=== PATIENT | female | born 1945 | race Caucasian/White ===

== ENCOUNTER → 2023-07-28 13:48 | Outpatient (CLI) | payer MEDICARE, MEDICAID, SELFPAY ==
--- NOTE | ~2023-07-28 | MM_ITS ---
EXAMINATION: MM screening génesis BI w son HISTORY: Screening mammogram TECHNIQUE: Craniocaudal and mediolateral oblique 3-D tomosynthesis images were obtained and synthetic 2-D images were generated. CAD analysis was submitted and interpreted. COMPARISON: No prior mammogram is available for comparison at this institution. BREAST PARENCHYMAL COMPOSITION: The breasts are almost entirely fatty. FINDINGS: No suspicious mass, calcification, or architectural distortion are identified in either saul ast to suggest malignancy. IMPRESSION: 1. No mammographic evidence of malignancy. 2. Recommend routine screening mammography in one year. BI-RADS Category 1: Negative Reviewed, dictated and finalized at location A. SH MIXER
== END ==
PROVIDERS: PCP Emergency Medicine; Visit Provider Emergency Medicine
DX: Z12.31 Encounter for screening mammogram for malignant neoplasm of breast (principal); Z78.0 Asymptomatic menopausal state
CPT/HCPCS: 77063; 77067

== ENCOUNTER 2023-10-24 11:24 | Outpatient (CLI) | payer MEDICARE, MEDICAID, SELFPAY ==
--- NOTE | ~2023-10-24 | XR_ITS ---
EXAMINATION: XR chest 2V DATE: 10/24/2023 11:49 INDICATION: Centrilobular emphysema. TECHNIQUE: Frontal and lateral views of the chest were obtained. COMPARISON: None. FINDINGS: There is mild atelectasis in the lower lung zones and left upper lobe. No pleural effusion or pneumothorax. The heart size is normal. IMPRESSION: 1. Mild atelectasis in the lungs. Reviewed, dictated and finalized at location E. OMER CONTACT REPRESENTATIVE
== END 2023-10-24 11:25 | disposition home or self-care (01) ==
PROVIDERS: PCP Emergency Medicine; Visit Provider Emergency Medicine
DX: J43.2 Centrilobular emphysema (principal)
CPT/HCPCS: 71046

== ENCOUNTER 2023-11-14 10:03 | Emergency (ER) | payer MEDICARE, MEDICAID, SELFPAY ==
--- NOTE | ~2023-11-14 | XR_ITS ---
EXAMINATION: XR knee RT 3V DATE: 11/14/2023 10:44 INDICATION: Right knee pain. TECHNIQUE: 3 views of right knee were obtained. COMPARISON: None. FINDINGS: There is a total right knee arthroplasty with patellar resurfacing in near-anatomic alignme nt. No periprosthetic lucency to suggest loosening or infection. No fracture. There is heterotopic os sification medial to the knee joint. No knee joint effusion. IMPRESSION: 1. Total right knee arthroplasty in near-anatomic alignment. Reviewed, dictated and finalized at location E.
--- NOTE | ~2023-11-14 | US_ITS ---
EXAMINATION:US venous doppler LE RT INDICATION:Right knee pain TECHNIQUE: Multiple grayscale, color flow and Doppler images of the right lower extremity deep venous systems were obtained and reviewed. COMPARISON:No prior studies for comparison. FINDINGS: The common femoral, superficial femoral and popliteal veins demonstrate normal respiratory variation, augmentation and compressibility. Color flow is also seen within the posterior tibial, pe roneal, greater saphenous and profunda veins. IMPRESSION: 1: No lower extremity deep venous thrombosis. Reviewed, dictated and finalized at location B.
[2023-11-14 10:07] VITALS: BP 136/71; PULSE 79; RESP 22; TEMP 36.5; O2SAT 96
--- NOTE | 2023-11-14 10:47 | ED.GENADULT ---
HPI - General Adult General Chief complaint: Extremity Problem,Nontraumatic Stated complaint: pain in back of right knee/leg Time Seen by Provider: 11/14/23 10:17 Source: patient Mode of arrival: ambulatory Limitations: no limitations History of Present Illness HPI narrative: This is a 78-year-old female with PMH of DVT, s/p IVC filter, bilateral knee replacement history who presents to the ED for chief complaint of right knee pain ongoing for the past 3 days. Reports that the pain has been gradually increasing. Reports that it is worse with walking or bending the knee. States that she is able to walk with the use of her cane. She has a history of DVTs in the past and has been taking her Xarelto regularly. denies any significant swelling. Denies numbness, weakness, shortness of breath, chest pain. Denies fevers, chills, nausea, vomiting Related Data Home Medications Medication Instructions Recorded Confirmed atorvastatin 40 mg tablet (Lipitor) 40 mg PO DAILY 11/10/23 11/10/23 bisoprolol fumarate 5 mg tablet 5 mg PO DAILY 11/10/23 11/10/23 fluticasone 500 mcg-salmeterol 50 1 inh inhalation Q12H 11/10/23 11/10/23 mcg/dose blistr powdr for inhalation (Wixela Inhub) fluticasone propionate 50 1 spray intranasal DAILY 11/10/23 11/10/23 mcg/actuation nasal spray,suspension (Allergy Relief (fluticasone)) hydrocodone 10 mg-acetaminophen 1 tablet PO Q8H PRN 11/10/23 11/10/23 325 mg tablet levothyroxine 88 mcg tablet 88 mcg PO DAILY 11/10/23 11/10/23 (Synthroid) lisinopril 10 mg tablet 10 mg PO DAILY 11/10/23 11/10/23 pantoprazole 40 mg tablet,delayed 40 mg PO DAILY 11/10/23 11/10/23 release (Protonix) rivaroxaban 20 mg tablet (Xarelto) 20 mg PO QPM 11/10/23 11/10/23 tiotropium bromide 18 mcg capsule 1 cap inhalation DAILY 11/10/23 11/10/23 with inhalation device (Spiriva with HandiHaler) venlafaxine 75 mg tablet 75 mg PO DAILY 11/10/23 11/10/23 Allergies Allergy/AdvReac Type Severity Reaction Status Date / Time tramadol Allergy Mild Vomiting Verified 11/14/23 10:13 Review of Systems Review of Systems: All systems as dictated in [facility] Past Medical History Medical History COPD (chronic obstructive pulmonary disease) Surgical History Surgical History H/O total hysterectomy History of bilateral knee replacement S/P IVC filter Family History Family History Sibling Esophageal abnormality Social History Social History (Updated 11/10/23 @ 11:05 by Josee Alfaro CMA) Smoking packs per day: 0 Smoking cigarettes per day: 0.0 Smoking status: Former smoker Second hand tobacco smoke exposure: No Alcohol intake: current Drinks per week: 1 Alcohol use details: Occasionally Substance use: never Do You Feel Safe in your Home?: Yes Lack of Transportation: No Lack of Food: Never True Current Housing: I Have Housing Concerned About Future Housing: No Difficulty Paying Gas/Electric Bills: No Difficulty Paying for Meds: No Currently Unemployed: No Education: High School Diploma/GED Difficulty w/ Childcare or Family Care: No Exam Narrative: GENERAL: Well-appearing, well-nourished, and in no acute distress. HEAD: Normocephalic, atraumatic. EYES: PERRLA and EOMI. ENT: Nares clear, no rhinorrhea or epistaxis. Mucous membranes moist. Oropharynx without tonsillar hypertrophy exudate or other lesions. NECK: Supple. No adenopathy or masses. CHEST: No respiratory distress. Clear to auscultation. No wheezes rales or rhonchi HEART: Regular rate and rhythm. No murmur heard. Normal peripheral pulses. ABDOMEN: Soft, nontender, nondistended, normal active bowel sounds. MSK: right lower extremity: old healed midline vertical incision scar present. No effusion, warmth or eryth
[2023-11-14 11:09] VITALS: BP 107/38; PULSE 65; RESP 17; O2SAT 94
[2023-11-14 11:32] VITALS: BP 107/58; PULSE 62; RESP 18; O2SAT 97
== END 2023-11-14 11:34 | disposition home or self-care (01) ==
PROVIDERS: Emergency Provider Physician Assistant; PCP Emergency Medicine
DX: M25.561 Pain in right knee (principal); J44.9 Chronic obstructive pulmonary disease, unspecified; Z90.710 Acquired absence of both cervix and uterus; Z96.653 Presence of artificial knee joint, bilateral; Z86.718 Personal history of other venous thrombosis and embolism; Z87.891 Personal history of nicotine dependence; Z79.01 Long term (current) use of anticoagulants
CPT/HCPCS: 73562; 93971; 99284

== ENCOUNTER 2023-11-24 14:44 | Outpatient (CLI) | payer MEDICARE, MEDICAID, SELFPAY ==
--- NOTE | 2023-11-24 14:57 | ECHO_ITS ---
Patient Info Name: Cat Dunaway Age: 78 years : 1945 Gender: Female Ht: 66 in Wt: 245 lbs BSA: 2.33 m2 HR: 74 bpm BP: 103 / 65 mmHg Technical Quality: Fair Exam Date: 11/24/2023 3:03 PM Exam Location: Echo Lab Patient Status: Outpatient Admit Date: 11/24/2023 Staff Ordering Physician: Charles Dodd DO Associate Chemist: Na Hurst RDCS Attending Provider: Charles Dodd DO Referring Physician: Yousif TRONCOSO; Exam Type: CA echo dop color flow w con Study Info Indications R06.09 - Other forms of dyspnea Complete two-dimensional, color flow and Doppler transthoracic echocardiogram is performed. Summary 1. Complete two-dimensional, color flow and Doppler transthoracic echocardiogram is performed. 2. Left ventricular chamber dimension is normal. 3. Left ventricular systolic function is normal, estimated at 60-65%. 4. The left ventricular diastolic function is grade I diastolic dysfunction. 5. E/e' 8 is minimally elevated. 6. There is mild aortic valve sclerosis. 7. The mitral valve has moderately calcified annulus. 8. There is trace tricuspid valve regurgitation. 9. No pulmonary hypertension, estimated pulmonary arterial systolic pressure is 30 mmHg. Left Ventricle E/e' 8 is minimally elevated. Left ventricular chamber dimension is normal. Left ventricular systolic function is normal, estimated at 60-65%. The left ventricular diastolic function is grade I diastolic dysfunction. Right Ventricle Right ventricular chamber dimension is normal. Right ventricular systolic function is normal. Left Atria Left atrial chamber dimension is normal. Right Atria Right atrial chamber dimension is normal. Aortic Valve The aortic valve is trileaflet. There is mild aortic valve sclerosis. There is no aortic valve stenosis. There is no aortic valve regurgitation. Pulmonic Valve There is no pulmonic regurgitation. Mitral Valve The mitral valve has moderately calcified annulus. There is no mitral valve stenosis. There is no mitral valve regurgitation. Tricuspid Valve There is trace tricuspid valve regurgitation. No pulmonary hypertension, estimated pulmonary arterial systolic pressure is 30 mmHg. Pericardium/Pleural There is no pericardial effusion. Inferior Vena Cava Normal inferior vena cava with >50% collapse upon inspiration consistent with normal right atrial pressure, 5 mmHg. Aorta The aortic root size at the sinus of Valsalva is normal. Left Ventricular Outflow Tract Name Value Normal LVOT 2D LVOT Diameter 2.03 cm LVOT Doppler LVOT Peak Gradient 5 mmHg LVOT Mean Gradient 2 mmHg LVOT VTI 23.26 cm LVOT VTI/AV VTI Ratio 1.08 LVOT Stroke Volume 75.32 ml LVOT CO 5.11 l/min LVOT CI 2.19 L/min/m2 Pulmonic Valve Name Value Normal RVOT Doppler
== END 2023-11-24 14:45 | disposition home or self-care (01) ==
LOC: ANHCARD 14:46
PROVIDERS: PCP Emergency Medicine; Visit Provider Internal Medicine Cardiovascular Disease
DX: R06.09 Other forms of dyspnea (principal)
CPT/HCPCS: 93306; C8929

== ENCOUNTER 2024-01-03 08:48 | Outpatient (CLI) | payer MEDICARE, MEDICAID, SELFPAY ==
--- NOTE | 2024-01-12 23:51 | WPDSLEEPSTUD ---
Sleep Study Date of Study: 01/03/24 Ordering Provider: JAYLIN French Interpreting Physician: Domi Cortez MD Sleep Study Type: Split Polysomnogram Height: 1.68 m Weight: 113.398 kg Body Mass Index: 40.3 Neck Circumference (inches): 17 Otley: 10 Reason for Sleep Study Hypersomnolence Sleep History Cat Dunaway is a 78-year-old woman with loud snoring and frequent episodes of waking at night. Her medical comorbidities include asthma/COPD, GERD, nasal allergies, hypothyroidism and depression. She occasionally awakens from sleep feeling short of breath. She occasionally wakes at night with heartburn, belching or coughing.??She constantly snores, frequently snores loudly enough that others complain. She constantly has trouble sleeping when she has a cold. She occasionally wakes up gasping for breath during the night. She occasionally sweats excessively at night. She never notices her heart pounding or beating irregularly during the night. She constantly falls asleep during the day. She never falls asleep involuntarily, and never falls asleep while driving. She never experiences loss of muscle tone with strong emotion. She never feels paralyzed on waking or falling asleep. She never experiences vivid dreams upon waking or falling asleep. She never feels afraid of going to sleep. She occasionally has nightmares. She constantly recalls her dreams. She frequently has thoughts racing through her mind. She occasionally feels sad or depressed. She occasionally feels anxiety. She rarely notices parts of her body jerk. She never feels crawling or aching feelings in her legs. She occasionally feels leg pain at night. She rarely has morning jaw pain, and never grinds her teeth at night. She constantly feels bothered by pain during the day, is rarely awakened by pain during the night. She constantly wakes up feeling stiff in the morning, rarely wakes feeling sore or achy in the morning. She frequently awakens with pain in her neck, spine, or joints. She reports a 20 lb weight gain in the last year. Normal bedtime is 8:00 p.m., typically waking up between 3 and 4 times during the night to go to the bathroom or drink water. She wakes at 7:30 a.m., keeps the same schedule on weekends. She does not take naps in the afternoon or evening. A short nap lasting 10-15 minutes may be refreshing. Habits:??Tobacco: Former smoker, none for 20 years Caffeine: 3 cups daily. Alcohol:none Recreational substances: none [facility] Past Medical History Medical History (Updated 01/13/24 @ 01:06 by Domi Cortez MD) COPD (chronic obstructive pulmonary disease) Depression History of recurrent deep vein thrombosis (DVT) Hypertension Surgical History Surgical History H/O total hysterectomy History of bilateral knee replacement S/P IVC filter Family History Family History Sibling Esophageal abnormality Social History Social History Smoking packs per day: 0 Smoking cigarettes per day: 0.0 Smoking status: Former smoker Second hand tobacco smoke exposure: No Alcohol intake: current Drinks per week: 1 Alcohol use details: Occasionally Substance use: never Do You Feel Safe in your Home?: Yes Lack of Transportation: No Lack of Food: Never True Current Housing: I Have Housing Concerned About Future Housing: No Difficulty Paying Gas/Electric Bills: No Difficulty Paying for Meds: No Currently Unemployed: No Education: High School Diploma/GED Difficulty w/ Childcare or Family Care: No Medications Home Medications Medication Instructions Recorded Confirmed Type atorvastatin 40 mg tablet (Lipitor) 40 mg PO DAILY 11/10/23 12/26/23 History bisoprolol fumarate 5 mg tablet 5 mg PO DAILY 11/10/23
[2024-01-13 00:50] VITALS: BMI 40.3
== END 2024-01-04 07:03 | disposition home or self-care (01) ==
LOC: ANHCSM 08:49
PROVIDERS: PCP Emergency Medicine; Visit Provider Physician Assistant
DX: G47.33 Obstructive sleep apnea (adult) (pediatric) (principal); I10 Essential (primary) hypertension; Z68.41 Body mass index [BMI] 40.0-44.9, adult
CPT/HCPCS: 95811

== ENCOUNTER 2024-02-01 09:46 | Outpatient (CLI) | payer MEDICARE, MEDICAID, SELFPAY ==
--- NOTE | ~2024-02-01 | NM_ITS ---
EXAMINATION: NM melonie stress w perfusion DATE: 02/01/2024 13:42 INDICATION: Other forms of dyspnea TECHNIQUE: Rest images were obtained following intravenous administration of 8.7 mCi Tc99m tetrofosmi n (Myoview). The patient was infused intravenously with Lexiscan (Regadenoson). Then, 36 mCi Tc99m te trofosmin (Myoview) was administered intravenously, and stress images were obtained. Data was reconst ructed into short axis and horizontal and vertical long axis SPECT images. Gated SPECT images were al so obtained. COMPARISON: None. FINDINGS: Fixed perfusion defect involving the apical septal, mid inferoseptal, apical inferior, mid inferior, basilar inferior and mid inferolateral segments which could be due to infarct . Review of t he rotating source images however demonstrate relatively preserved activity along the inferior wall o n several of the images as well as a diverting dome of the liver which suggests the fixed perfusion d efect could also be related to diaphragmatic attenuation artifact. Prone imaging was unable to be obt ained. No reversible perfusion defects to suggest ischemia. There is normal left ventricular chamber size, wall motion and ejection fraction. Left ventricular ejection fraction measures >70%. IMPRESSION: 1. Fixed perfusion defect involving the inferior wall, mid inferolateral, apical septal and mid infer oseptal segments which could be related to infarct or potentially diaphragmatic attenuation artifact. No reversible ischemia. 2. Left ventricular ejection fraction measuring >70%. Reviewed, dictated and finalized at location A. IMPRESSION: 1. Fixed perfusion defect involving the inferior wall, mid inferolateral, apica l septal and mid inferoseptal segments which could be related to infarct or pot entially diaphragmatic attenuation artifact. No reversible ischemia. 2. Left ventricular ejection fraction measuring >70%.
--- NOTE | 2024-02-01 09:59 | EST_ITS ---
Patient Info Name: Cat Dunaway Age: 79 years : 1945 Gender: Female Ht: 66 in Wt: 240 lbs BSA: 2.30 m2 HR: 67 bpm BP: 140 / 74 mmHg Heart Rhythm: Sinus Rhythm Exam Date: 02/01/2024 11:14 AM Exam Location: Echo Lab Patient Status: Outpatient Admit Date: 02/01/2024 Staff Ordering Physician: Charles Dodd DO Attending Provider: Charles Dodd DO Exercise Technologist: Emilie Whitaker CT Exercise Physician: Charles Dodd DO Exam Type: CA stress melonie w NM Study Info Indications R06.09 - Other forms of dyspnea A regadenoson stress test was performed. Summary 1. 1. Negative lexiscan stress test for ischemic ST changes by ECG criteria. 2. 2. Baseline hypertension. 3. 3. Nuclear scan to follow and will be reported separately. Please correlate with it. 4. 4. Patient informed of the above results. Protocol: Lexiscan Stress ECG Details Stage: REST Duration (min): 1 min : 21 sec HR (bpm): 66 SBP (mmHg): 140 DBP (mmHg): 74 Stage: REST Duration (min): 33 min : 29 sec HR (bpm): 67 SBP (mmHg): 140 DBP (mmHg): 74 Stage: STAGE 1 Duration (min): 0 min : 59 sec HR (bpm): 76 SBP (mmHg): 147 DBP (mmHg): 102 Stage: RECOVERY Duration (min): 1 min : 0 sec HR (bpm): 76 SBP (mmHg): 147 DBP (mmHg): 102 Stage: RECOVERY Duration (min): 2 min : 0 sec HR (bpm): 74 SBP (mmHg): 147 DBP (mmHg): 102 Stage: RECOVERY Duration (min): 3 min : 0 sec HR (bpm): 73 SBP (mmHg): 155 DBP (mmHg): 95 Stage: RECOVERY Duration (min): 3 min : 5 sec HR (bpm): 73 SBP (mmHg): 155 DBP (mmHg): 95 Rest HR: 67 bpm Peak HR: 77 bpm Rest Sys BP: 140 mmHg Peak Sys BP: 155 mmHg Max Pred HR: 142 bpm % Max Pred HR: 54 % Target HR: 121 bpm Max RPP: 11,935 bpm*mmHg Termination Reason: Completed protocol Cardiac Symptoms: Shortness of breath Total Time: 1 min : 0 sec Rest Choe BP: 74 mmHg Peak Choe BP: 95 mmHg Total Dose: 0.4 mg Resting ECG Sinus rhythm. Stress ECG No ST changes. Arrhythmias None. Report Signatures
== END 2024-02-01 09:47 | disposition home or self-care (01) ==
PROVIDERS: PCP Emergency Medicine; Visit Provider Internal Medicine Cardiovascular Disease
DX: R06.09 Other forms of dyspnea (principal)
CPT/HCPCS: 78452; 93017; A9502; J2785

== ENCOUNTER 2024-02-10 13:38 | Outpatient (CLI) | payer MEDICARE, MEDICAID, SELFPAY ==
[2024-02-10 13:40] VITALS: PULSE 68; O2SAT 92
[2024-02-10 13:45] VITALS: PULSE 82; O2SAT 87
[2024-02-10 13:50] VITALS: PULSE 90; O2SAT 88
[2024-02-10 13:55] VITALS: PULSE 92; O2SAT 91
[2024-02-10 14:10] VITALS: PULSE 69; O2SAT 92
--- NOTE | 2024-02-10 14:32 | HOMEO2EVAL ---
Evaluation was performed at [facility] Home Oxygen Evaluation RC: Home Oxygen (O2) Evaluation Start: 02/10/24 14:06 Freq: Status: Active Protocol: RPE Activity Type Activity Date Activity User E-sign Co-sign Detail Recorded Client Recorded Date Recorded By Document 02/10/24 13:40 DJO [email or web address] 02/10/24 14:11 DJO Document 02/10/24 13:45 [email or web address] [email or web address] 02/10/24 14:11 DJO Document 02/10/24 13:50 [email or web address] [email or web address] 02/10/24 14:11 DJO Document 02/10/24 13:55 [email or web address] [email or web address] 02/10/24 14:11 DJO Document 02/10/24 14:10 [email or web address] [email or web address] 02/10/24 14:11 DJO 02/10/24 02/10/24 02/10/24 13:40 13:45 13:50 Home O2 Evaluation [Oxygen] -Test Phase Resting Exercise Exercise -Oxygen Delivery Room Air Room Air Nasal Cannula -Oxygen Flow Rate (L/min) 1 [Pulse Oximetry] -Pulse Oximetry (90-100 %) 92 87 L 88 L [Pulse Rate] -Pulse Rate (60-100 beats/min) 68 82 90 [Evaluation] -Activity Tolerance [Charges] -Evaluation Charges O2 Evaluation by Pulmonary 02/10/24 02/10/24 13:55 14:10 Home O2 Evaluation [Oxygen] -Test Phase Exercise Resting -Oxygen Delivery Nasal Cannula Room Air -Oxygen Flow Rate (L/min) 2 [Pulse Oximetry] -Pulse Oximetry (90-100 %) 91 92 [Pulse Rate] -Pulse Rate (60-100 beats/min) 92 69 [Evaluation] -Activity Tolerance Good [Charges] -Evaluation Charges
--- NOTE | 2024-02-13 12:54 | WPDPFTINT ---
PFT Procedure Performed PFT Procedure Performed Spirometry with Pre/Post Bronchodilator Plethysmography (Lung Vol) Diffusing Cap (DLCO) Flow Vol Loop PFT Interpretation This is a pulmonary function test with pre and post-bronchodilator spirometry, plethysmography and diffusing capacity. The test was performed and results interpreted in accordance with the 2019 and 2005 ATS/ERS Task Force guidelines respectively using the Global Lung Function Initiative-2012 reference equations. Patient demonstrated good effort and cooperation. Reproducibility criteria were met. The quality of the pre bronchodilator spirometry maneuver was Grade A and post bronchodilator spirometry maneuver was Grade A. Findings: Spirometry: There is decreased maximal expiratory airflow at all lung volumes with concave expiratory flow tracing. The contour the inspiratory flow tracing is normal. The pre bronchodilator FVC is 1.81 L, 65% predicted. The pre bronchodilator FEV1 is 1.23 L, 58% predicted. The pre bronchodilator FEV1: FVC ratio 68%. The post bronchodilator FVC is 2.36 L, representing a 30% increase. The post bronchodilator FEV1 is 1.40 L, representing a 13% increase. The post bronchodilator FEV1: FVC ratio is 59%. Plethysmography: The total lung capacity is 5.51 L, 103% predicted. The functional residual residual capacity is 3.67 L, 118% predicted. The residual volume is 3.41 L, 139% predicted. The residual volume: Total lung capacity ratio 62%. The slow vital capacity is 2.10 L. Diffusing capacity: The diffusing capacity unadjusted for hemoglobin and carboxyhemoglobin is 13.1, 64% predicted. The diffusing capacity adjusted for alveolar volume is 3.40, 83% predicted. Impression: The slow vital capacity is greater than forced vital capacity with a concave expiratory tracing and a low FEV1: FVC ratio with a moderately severe decrease in FEV1. This is suggestive of small airways disease. There is significant improvement after inhaling a single dose of albuterol. The increase in residual volume to total lung volume ratio is consistent with hyperinflation. The diffusing capacity unadjusted for hemoglobin and carboxyhemoglobin is mildly decreased and normalizes when adjusted for alveolar volume. There are no prior studies for comparison
== END 2024-02-10 13:39 | disposition home or self-care (01) ==
LOC: ANHPFT 13:39
PROVIDERS: PCP Emergency Medicine; Visit Provider Physician Assistant
DX: J44.9 Chronic obstructive pulmonary disease, unspecified (principal)
CPT/HCPCS: 94060; 94618; 94726; 94729

== ENCOUNTER 2024-04-25 00:59 | Day surgery (SDC) | payer MEDICARE, MEDICAID, SELFPAY ==
[2024-04-18 13:57] VITALS: BMI 39.6
--- NOTE | 2024-04-18 14:23 | PC.NURSE ---
Spoke with _PATIENT_ regarding medication XARELTO. Pt. verbalizes understanding that the last dose of XARELTO is to be taken on 04/25/2024 and the Endoscopist will instruct them when to restart after the procedure.
[2024-04-25 08:19] VITALS: BP 120/68; PULSE 94; RESP 20; TEMP 36.5; O2SAT 96
[2024-04-25] MEDS: LACTATED RINGERS 1,000 ML 150 ML IV CONT (08:30)
--- NOTE | 2024-04-25 09:15 | PM.HPGS ---
History of Present Illness History of Present Illness Consent: Risks, benefits, and alternatives have been discussed and questions answered. Patient agrees to proceed with procedure. Chief complaint: GERD, Neoplasm screening Narrative: Cat Dunaway is a 79 year old female here for first egd, h/o longstanding gerd sometimes flare up at night, using protonix daily, last colonoscopy 10 years ago Review of Systems Review of Systems: All systems reviewed & are unremarkable except as noted in HPI and below PMFSH Past Medical History Medical History (Updated 04/25/24 @ 09:17 by Wiliam Delgado MD) Colon cancer screening COPD (chronic obstructive pulmonary disease) Depression GERD (gastroesophageal reflux disease) History of recurrent deep vein thrombosis (DVT) Hypertension Surgical History Surgical History H/O total hysterectomy History of bilateral knee replacement S/P IVC filter Family History Family History Sibling Esophageal abnormality Social History Social History Smoking packs per day: 1 Smoking cigarettes per day: 20.0 Years smoked: 30 Smoking pack-years: 30.00 Smoking status: Former smoker Tobacco type: cigarettes Second hand tobacco smoke exposure: No Alcohol intake: current Drinks per week: 1 Alcohol use details: Occasionally Substance use: never Substance use type: does not use Do You Feel Safe in your Home?: Yes Lack of Transportation: No Lack of Food: Never True Current Housing: I Have Housing Concerned About Future Housing: No Difficulty Paying Gas/Electric Bills: No Difficulty Paying for Meds: No Currently Unemployed: No Education: High School Diploma/GED Difficulty w/ Childcare or Family Care: No Living arrangements: with family Spiritual care concerns: No Meds Home Medications and Allergies Home Medications Medication Instructions Recorded Confirmed Type atorvastatin 40 mg tablet (Lipitor) 40 mg PO DAILY 11/10/23 04/25/24 History bisoprolol fumarate 5 mg tablet 5 mg PO DAILY 11/10/23 04/25/24 History fluticasone 500 mcg-salmeterol 50 1 inh inhalation Q12H 11/10/23 04/25/24 History mcg/dose blistr powdr for inhalation (Wixela Inhub) fluticasone propionate 50 1 spray intranasal DAILY 11/10/23 04/25/24 History mcg/actuation nasal spray,suspension (Allergy Relief (fluticasone)) hydrocodone 10 mg-acetaminophen 1 tablet PO Q8H PRN Pain 11/10/23 04/25/24 History 325 mg tablet levothyroxine 88 mcg tablet 88 mcg PO DAILY 11/10/23 04/25/24 History (Synthroid) lisinopril 10 mg tablet 10 mg PO DAILY 11/10/23 04/25/24 History pantoprazole 40 mg tablet,delayed 40 mg PO DAILY 11/10/23 04/25/24 History release (Protonix) rivaroxaban 20 mg tablet (Xarelto) 20 mg PO QPM 11/10/23 04/18/24 History tiotropium bromide 18 mcg capsule 1 cap inhalation DAILY 11/10/23 04/25/24 History with inhalation device (Spiriva with HandiHaler) venlafaxine 75 mg tablet 75 mg PO DAILY 11/10/23 04/25/24 History docusate sodium 100 mg capsule 100 mg PO DAILY 04/18/24 04/25/24 History (Stool Softener) phentermine 15 mg capsule 15 mg PO DAILY 04/18/24 04/25/24 History senna 1 cap PO PRN PRN Constipation 04/18/24 04/25/24 History Allergies Allergy/AdvReac Type Severity Reaction Status Date / Time tramadol Allergy Mild Jittery Verified 04/25/24 08:17 Vital Signs Vital Signs - 24 hr 04/25/24 08:19 Temperature 97.7 F Pulse Rate 94 Respiratory Rate 20 Blood Pressure 120/68 Pulse Oximetry 96 Oxygen Delivery Room Air Exam Const: General: comfortable, no acute distress and obese HENMT: Face/Nose/Sinus: Normal nares present Eyes: General: appearance normal, both eyes and all related structures Neck: Neck: no JVD Resp: Ausculta
[2024-04-25] MEDS: BENZOCAINE (*SP) 60 ML SPRAY CAN (HURRICAINE) 1 SPRAY MUCOUS MEM (09:25)
--- NOTE | 2024-04-25 09:30 | SUR.OPER ---
EGD start 924 end 927, Colonoscopy start 933
[2024-04-25 09:54] VITALS: BP 124/57; PULSE 80; RESP 16; O2SAT 98
[2024-04-25 10:04] VITALS: BP 139/63; PULSE 78; RESP 20; O2SAT 100
[2024-04-25 10:14] VITALS: BP 123/63; PULSE 77; RESP 13; O2SAT 95
--- NOTE | 2024-04-27 14:55 | WPDANESEPPF ---
Anes - Initial Pre Proc Eval Procedure: Operation Date: 04/25/24 09:30 Proposed Procedures p Esophagogastroduodenoscopy&Screen Colon - Wiliam Delgado MD Date/Time: 04/27/24 14:55 Surgeon: Wiliam Delgado MD Pre Op Diagnosis: GERD, Neoplasm screening Patient Data Age: 79 Gender: F Height: 1.68 m Weight: 114.9 kg Last Vital Signs Temp 97.7 F 04/25/24 08:19 Pulse 77 04/25/24 10:14 Resp 13 04/25/24 10:14 BP 123/63 04/25/24 10:14 Pulse Ox 95 04/25/24 10:14 O2 Del Method Room Air 04/25/24 10:14 Allergies Allergy/AdvReac Type Severity Reaction Status Date / Time tramadol Allergy Mild Jittery Verified 04/25/24 08:17 Home Medications Medication Instructions Recorded Confirmed Type atorvastatin 40 mg tablet (Lipitor) 40 mg PO DAILY 11/10/23 04/25/24 History bisoprolol fumarate 5 mg tablet 5 mg PO DAILY 11/10/23 04/25/24 History fluticasone 500 mcg-salmeterol 50 1 inh inhalation Q12H 11/10/23 04/25/24 History mcg/dose blistr powdr for inhalation (Wixela Inhub) fluticasone propionate 50 1 spray intranasal DAILY 11/10/23 04/25/24 History mcg/actuation nasal spray,suspension (Allergy Relief (fluticasone)) hydrocodone 10 mg-acetaminophen 1 tablet PO Q8H PRN Pain 11/10/23 04/25/24 History 325 mg tablet levothyroxine 88 mcg tablet 88 mcg PO DAILY 11/10/23 04/25/24 History (Synthroid) lisinopril 10 mg tablet 10 mg PO DAILY 11/10/23 04/25/24 History pantoprazole 40 mg tablet,delayed 40 mg PO DAILY 11/10/23 04/25/24 History release (Protonix) rivaroxaban 20 mg tablet (Xarelto) 20 mg PO QPM 11/10/23 04/18/24 History tiotropium bromide 18 mcg capsule 1 cap inhalation DAILY 11/10/23 04/25/24 History with inhalation device (Spiriva with HandiHaler) venlafaxine 75 mg tablet 75 mg PO DAILY 11/10/23 04/25/24 History docusate sodium 100 mg capsule 100 mg PO DAILY 04/18/24 04/25/24 History (Stool Softener) phentermine 15 mg capsule 15 mg PO DAILY 04/18/24 04/25/24 History senna 1 cap PO PRN PRN Constipation 04/18/24 04/25/24 History Patient hx anesthesia problems: none Family hx anesthesia problems: none Results Review: All pre-operative results and documents have been reviewed as part of the pre-operative evaluation. [facility] Past Medical History Medical History (Updated 04/25/24 @ 09:17 by Wiliam Delgado MD) Colon cancer screening COPD (chronic obstructive pulmonary disease) Depression GERD (gastroesophageal reflux disease) History of recurrent deep vein thrombosis (DVT) Hypertension Surgical History Surgical History H/O total hysterectomy History of bilateral knee replacement S/P IVC filter Family History Family History Sibling Esophageal abnormality Social History Social History Smoking packs per day: 1 Smoking cigarettes per day: 20.0 Years smoked: 30 Smoking pack-years: 30.00 Smoking status: Former smoker Tobacco type: cigarettes Second hand tobacco smoke exposure: No Alcohol intake: current Drinks per week: 1 Alcohol use details: Occasionally Substance use: never Substance use type: does not use Do You Feel Safe in your Home?: Yes Lack of Transportation: No Lack of Food: Never True Current Housing: I Have Housing Concerned About Future Housing: No Difficulty Paying Gas/Electric Bills: No Difficulty Paying for Meds: No Currently Unemployed: No Education: High School Diploma/GED Difficulty w/ Childcare or Family Care: No Living arrangements: with family Spiritual care concerns: No Anes - Eval Final PreProcedure Day of Procedure 04/27/24 14:55 Patient weight: morbidly obese Heart: regular rate and rhythm Lungs: clear to auscultation Airway: Mallampati scale Neurolo
== END 2024-04-25 10:25 | disposition home or self-care (01) ==
PROVIDERS: PCP Emergency Medicine; Referring Provider Emergency Medicine; Visit Provider Internal Medicine Gastroenterology
PROC: 0DJ08ZZ Inspection of Upper Intestinal Tract, Via Natural or Artificial Opening Endoscopic (ICD-10-PCS; CPT 43235; principal; 2024-04-25 09:30)
DX: Z12.11 Encounter for screening for malignant neoplasm of colon (principal); K57.30 Diverticulosis of large intestine without perforation or abscess without bleeding; K63.5 Polyp of colon; K64.8 Other hemorrhoids; K29.70 Gastritis, unspecified, without bleeding; K21.9 Gastro-esophageal reflux disease without esophagitis; J44.9 Chronic obstructive pulmonary disease, unspecified; I10 Essential (primary) hypertension; F32.A Depression, unspecified; Z86.718 Personal history of other venous thrombosis and embolism; Z87.891 Personal history of nicotine dependence; Z79.01 Long term (current) use of anticoagulants; Z79.891 Long term (current) use of opiate analgesic; E66.01 Morbid (severe) obesity due to excess calories; Z68.41 Body mass index [BMI] 40.0-44.9, adult
CPT/HCPCS: 45385; 43239; 88305; J1596; J2704; J7120

== ENCOUNTER 2024-07-27 13:00 | Outpatient (CLI) | payer MEDICARE, MEDICAID, SELFPAY ==
--- NOTE | ~2024-07-27 | US_ITS ---
EXAMINATION: US thyroid DATE: 07/27/2024 13:15 INDICATION: Hypothyroidism. TECHNIQUE: Multiple ultrasound images of the thyroid were obtained. COMPARISON: None. FINDINGS: The right thyroid lobe measures 2.9 x 0.6 x 0.8 cm. The left thyroid lobe measures 2.9 x 0.9 x 0.8 c m. The thyroid demonstrates heterogeneous echogenicity. Vascularity is normal. No discrete nodule. IMPRESSION: 1. Small thyroid. Reviewed, dictated and finalized at location A. ET PRESIDENT IMPRESSION: 1. Small thyroid.
== END 2024-07-27 13:01 | disposition home or self-care (01) ==
LOC: MICIMG 13:00
PROVIDERS: PCP Emergency Medicine; Visit Provider Emergency Medicine
DX: E04.1 Nontoxic single thyroid nodule (principal)
CPT/HCPCS: 76536

== ENCOUNTER 2024-07-30 15:12 | Outpatient (CLI) | payer MEDICARE, MEDICAID, SELFPAY ==
--- NOTE | ~2024-07-30 | MM_ITS ---
EXAMINATION: MM screening génesis BI w son HISTORY: Screening TECHNIQUE: Craniocaudal and mediolateral oblique 3-D tomosynthesis images were obtained and synthetic 2-D images were generated. CAD analysis was submitted and interpreted. COMPARISON: 07/28/2023 BREAST PARENCHYMAL COMPOSITION: Not Dense: The breasts are almost entirely fatty. FINDINGS: There is no evidence of suspicious mass, calcification, or architectural distortion to sugg est malignancy in either breast. There has been no suspicious interval change. IMPRESSION: 1. No mammographic evidence of malignancy. 2. Recommend routine screening mammography in one year. BI-RADS Category 1: Negative Reviewed, dictated and finalized at location B. KEN DRESSER
== END 2024-07-30 15:13 | disposition home or self-care (01) ==
LOC: MICIMG 15:13
PROVIDERS: PCP Emergency Medicine; Visit Provider Emergency Medicine
DX: Z12.31 Encounter for screening mammogram for malignant neoplasm of breast (principal)
CPT/HCPCS: 77063; 77067

== ENCOUNTER 2024-10-23 14:29 | Outpatient (CLI) | payer MEDICARE, SELFPAY ==
[2024-10-23 14:56] LABS: Estimated Glomerular Filt Rate 43
[2024-10-23 17:04] LABS: Add Urine Microscopic? NO; Appearance Urine Clear (Clear); Bilirubin Urine Negative (Negative); Blood Urine Negative (Negative); Color Urine Yellow (Yellow); Glucose Urine UA Negative (Negative); Ketones Urine Negative (Negative); Leukocyte Esterase Ur Negative LEU/UL (Negative); Nitrate Urine Negative (Negative); Protein Urine Negative (Negative); Specific Grav Ur > 1.045 (1.001-1.035); Urobilinogen Urine 0.2 mg/dL (<2.0)
== END 2024-10-23 14:30 | disposition home or self-care (01) ==
PROVIDERS: PCP Emergency Medicine; Visit Provider Emergency Medicine
DX: N30.01 Acute cystitis with hematuria (principal); R10.84 Generalized abdominal pain
CPT/HCPCS: 74178; 81003; Q9967

== ENCOUNTER 2024-10-24 14:38 | Outpatient (CLI) | payer MEDICARE, SELFPAY ==
--- NOTE | ~2024-10-24 | XR_ITS ---
XR hand RT min 3V Ordering provider: Nita Cortez MD History: . M18.9 - Osteoarthritis of first carpometacarpal joint, un... . Comparison: None. FINDINGS: BONES: No acute fracture or dislocation. JOINT SPACES: Osteoarthritic changes of the first carpometacarpal joint. SOFT TISSUES: Normal. IMPRESSION: No acute osseous abnormality right hand. Osteoarthritic changes of the first carpometacarpal joint. Reviewed, dictated and finalized at location A. E MANUFACTURE SUPERVISOR
--- NOTE | ~2024-10-24 | XR_ITS ---
XR hand LT min 3V Ordering provider: Nita Cortez MD History: . M18.9 - Osteoarthritis of first carpometacarpal joint, un... . Comparison: None. FINDINGS: BONES: No acute fracture or dislocation. JOINT SPACES: Osteoarthritic changes of the first carpometacarpal joint. SOFT TISSUES: Unremarkable. IMPRESSION: No acute osseous abnormality left hand. Osteoarthritic changes of the first carpometacarpal joint. Reviewed, dictated and finalized at location A. HEAD CRANE INSPECTOR
--- OUTSIDE RECORDS SUMMARY | 2024-10-24 16:23 | XMS_ITS | Clinical Summary ---
[facility] Organization [facility] Address [address] [place] [address] Care Team Providers [facility] Director Name Role Phone Unavailable Primary Care Provider Unavailabl e Medications bisoprolol (ZEBETA) 5 mg tablet Take 1 Tablet (5 mg) by mouth daily. 90 Tablet 3 12/20/2023 12:40 PM CDT 06/20/2023 Active rivaroxaban (Xarelto) 20 mg Tablet TAKE 1 TABLET BY MOUTH DAILY WITH EVENING MEAL 90 Tablet 3 12/20/2023 12:40 PM CDT 06/20/2023 Active levothyroxine 88 mcg tablet Take 1 Tablet (88 mcg) by mouth daily. 90 Tablet 3 12/20/2023 12:40 PM CDT 06/20/2023 Active venlafaxine (Effexor XR) 75 mg Extended Release 24 hour capsule Take 1 Capsule (75 mg) by mouth daily with food 90 Capsule 3 12/20/2023 12:40 PM CDT 06/20/2023 Active HYDROcodone-christopher taminophen (NORCO) 10-325 mg Tablet TAKE 1 TABLET BY MOUTH THREE TIMES DAILY 90 Tablet 06/22/2023 12:21 PM CDT 06/20/2023 Active atorvastatin (Lipitor) 40 mg tablet Take 1 Tablet (40 mg) by mouth daily. 90 Tablet 3 12/20/2023 12:40 PM CDT 06/20/2023 Active lisinopriL (PRINIVIL) 10 mg tablet Take 1 Tablet (10 mg) by mouth daily. 90 Tablet 3 12/20/2023 12:40 PM CDT 06/20/2023 Active pantoprazole (Protonix) 40 mg Tablet, Delayed Release (E.C.) Take 1 Tablet (40 mg) by mouth daily. 90 Tablet 1 09/20/2023 11:07 AM ELECTRIC MOTOR FITTER 06/20/2023 Active HYDROcodone-christopher taminophen (NORCO) 7.5-325 mg Tablet Take 1 Tablet by mouth 3 times daily as needed for pain. Max Daily Amount: 3 Tablets 90 Tablet 09/20/2023 11:07 AM ELECTRIC MOTOR FITTER 09/19/2023 Active predniSONE (DELTASONE) 20 mg tablet Take 3 Tablets (60 mg) by mouth once daily. 15 Tablet 09/20/2023 11:07 AM ELECTRIC MOTOR FITTER 09/19/2023 Active azithromycin (Zithromax Z-Chris) 250 mg tablet TAKE 2 TABLETS BY MOUTH 1 DOSE ON DAY 1, THEN TAKE 1 TABLET BY MOUTH ONCE DAILY ON DAYS 2 THRU 5. 6 Tablet 09/20/2023 11:07 AM ELECTRIC MOTOR FITTER 09/19/2023 Active pantoprazole (PROTONIX) 40 mg Tablet, Delayed Release (E.C.) Take 1 Tablet (40 mg) by mouth daily. 90 Tablet 1 12/25/2023 Active Encounters Date Type Department Care Team Description 10/10/2024 External Device Data [facility] ABSTRACTION Provider, Abstract 09/18/2024 External Device Data [facility] ABSTRACTION Provider, Abstract 09/12/2024 External Device Data [facility] ABSTRACTION Provider, Abstract from Last 3 Months Social History Tobacco Use Types Packs/Day Years Used Date Smoking Tobacco: Never Assessed Comments Unknown Sex and Gender Information Value Date Recorded Sex Assigned at Not on file Legal Sex Female 11:48 AM CDT Gender Identity Not on file Sexual Orientation Not on file Plan of Treatment Health Maintenance Due Date Last Done Comments DTAP/TDAP/TD VACCINES (1 - Tdap) 1965 PNEUMOCOCCAL VACCINE 50+ YEARS (1 of 1 - PCV) 01/22/19 96 ZOSTER VACCINE (1 of 2) 01/23/1996 OSTEOPOROSIS SCREENING 2011 RSV VACCINE (60+ or ) (1 - 1-dose 75+ series) 2021 INFLUENZA VACCINE (#1) 2024 Insurance RX [employer] Member Subscriber Plan / Payer (Ef fective 2023-Present) Name:Cat Dunaway Relation to Subscriber:Self Name:Cta Dunaway Subscriber ID:Not on file Payer ID:Not on file Group ID:[id number] Type:RX Medicare Part D Address: [address] [employer] Commercial RX [employer] Member Subscriber Plan / Payer (Ef fective 2023-Present) Name:[place] Cat Relation to Subscriber:Self Name:Cat Dunaway Subscriber ID:Not on file Payer ID:Not on file Group ID:[id number] Type:RX Medicare Part D Address: [address]
== END 2024-10-24 14:39 | disposition home or self-care (01) ==
PROVIDERS: PCP Emergency Medicine; Visit Provider Plastic Surgery
DX: M18.0 Bilateral primary osteoarthritis of first carpometacarpal joints (principal)
CPT/HCPCS: 73130

== ENCOUNTER 2024-12-03 11:00 | Outpatient (RCR) | payer MEDICARE, SELFPAY ==
--- NOTE | 2024-11-05 14:03 | OTOPEVAL1 ---
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 She is right handed. She reports peeling potatoes is impossible . Difficulties with a gross gripping on items and difficulty and pain with writing. She reports the spasms are the most painful - increasing to 8/10 pain on the right hand and 5/10 pain on the left hand. She reports the thumbs flex and adduct into her palm and she sometimes has to use her other hand to pull the thumb open again. Reported Pain Level Pain Score 3,0: Self Report Assessment OT Clinical Summary Patient referred to OT with bilateral thumb pain with dx of bilateral basal joint arthritis, tenosynovitis, and carpal tunnel syndrome. Today a custom hand based thumb spica orthosis was fabricated for the right thumb. She was issued active ROM of the wrists, fingers, and thumbs. She reports intermittent thumb and finger spasms that are painful. Today her index finger spasmed into flexion with wrist flexion/extension with the fingers extended. Modified to have her complete with the fingers in a gentle fist. Continued follow up indicated to fabricate a left thumb spica orthotic, modalities, therapeutic exercises, and HEP instruction and progression to facilitate reduced bilateral hand pain and improved function for ADLs. Plan of Care Interventions Therapeutic Exercise,Manual Therapy,Therapeutic Activities,Hot Pack/Cold Pack,Check Out for Orthotic/Prosthetic,Ultrasound,Paraffin OT Services Indicated Yes Treatment Frequency and 2x/week for 8 visits Duration These treatments will address the objective and functional deficits as defined above. The patient will be advanced safely and appropriately in order for the patient to progress towards his/her prior level of function. Additional exercises will be introduced and as well as a comprehensive home exercise program upon discharge, if needed, ?to ensure carryover of functional gains achieved in the clinic. This treatment plan has been reviewed and agreement upon by the patient.
--- NOTE | 2024-11-05 14:03 | OPREHPOC ---
Outpatient Therapy Plan of Care This is a Multidisciplinary Plan of Care that may contain components documented by all disciplines (PT, OT, and ST.) OT Problem 1 OT Problem #1 Knowledge Deficit OT Goal 1 Goal / Goal Update Patient to be independent with instructed materials. Target Visit 8 OT Problem 2 OT Problem #2 Pain OT Goal 1 Goal / Goal Update Patient to report reduced pain in the (R) hand to 5/10 or less at worst . Target Visit 8 OT Goal 2 Goal / Goal Update Patient to report reduced pain in the (L) hand to 3/10 or less at worst . 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 Target Visit 8 OT Goal 2 Goal / Goal Update Patient to progress functional wrist strengthening to 2 lbs. in all planes without pain or spasms. Target Visit 8
--- NOTE | 2024-12-03 11:59 | OTOPDC ---
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 She reports her thumb pain has reduced, on average her thumbs improved to 2/10 during the day and 4/10 at worst , compared to 8/10 on a regular basis. She has progressed to being able to peel potatoes again with some intermittent cramping, compared to a month ago she was unable to do this task at all. She reports good compliance with wearing her thumb orthotics and doing her putty HEP. Assessment OT Clinical Summary Patient referred to OT with bilateral thumb pain with dx of bilateral basal joint arthritis, tenosynovitis, and carpal tunnel syndrome. Patient has progressed well with therapy. Her pain has reduced, spasms have reduced, and she is tolerating progressive therapeutic exercise well. She is using her hands for more ADLs. She has been compliant with orthotics and HEP. Reviewed all materials today and she demonstrates excellent understanding. Plan moving forward - D/C today with HEP. Patient scheduled for an EMG 12/19 and follows up with MD afterwards. If further therapy is indicated after her EMG she understands a new order will be required. Thank you for this referral. Plan of Care OT Services Indicated No
== END 2024-12-03 13:38 | disposition home or self-care (01) ==
LOC: ANHOT 11:00
PROVIDERS: PCP Emergency Medicine; Visit Provider Plastic Surgery
DX: M18.9 Osteoarthritis of first carpometacarpal joint, unspecified (principal)
CPT/HCPCS: 97018; 97110; 97140; 97166; L3913; L3921